=== PATIENT | male | born 1985 | race Caucasian/White ===

== ENCOUNTER 2023-12-10 18:54 | Emergency (ER) | payer BC ==
[~2023-12-10] VITALS: Ht 172.7 cm; Wt 81.6 kg
[2023-12-10 19:10] VITALS: BP_SYST 114; PULSE 70; RESP 16; TEMP 97.9; O2SAT 99
[2023-12-10] MEDS ORDERED: IBUP-1969 PO (20:20)
[2023-12-10] MEDS ORDERED: DICL20GE TP (20:20)
[2023-12-10] MEDS: IBUPROFEN 800 MG TABLET PO ONE (20:26)
[2023-12-10 20:37] VITALS: BP_SYST 114; PULSE 70; RESP 16; TEMP 97.9; O2SAT 99
== END 2023-12-10 20:37 | disposition home or self-care (01) ==
LOC: SED 18:54
DX: S76.011A Strain of muscle, fascia and tendon of right hip, initial encounter (principal); X58.XXXA Exposure to other specified factors, initial encounter; Y93.66 Activity, soccer; Y92.89 Other specified places as the place of occurrence of the external cause; Y99.8 Other external cause status
CPT/HCPCS: 73502; 99283